=== PATIENT | female | born 1940 | race Caucasian/White ===

== ENCOUNTER 2021-07-20 13:30 | Emergency (ER) | payer OTHER, MEDICARE ==
[~2021-07-20] VITALS: Ht 172.7 cm; Wt 72.6 kg
[2021-07-20 13:47] VITALS: BP_SYST 139
--- NOTE | 2021-07-20 13:51 | NUR ---
SENT TO [facility]
--- NOTE | 2021-07-20 14:30 | NUR ---
ER examed patient in triage.
[2021-07-20] MEDS ORDERED: HYDR-3917 PO (14:49)
[2021-07-20] MEDS ORDERED: IBUP-1969 PO (14:49)
--- NOTE | 2021-07-20 15:10 | NUR ---
Assumed care of pt. here in waiting room with pain to left ankle post a fall last night, pt. rates pain 7/10 at rest, xrays have been completed. no break noted, POC reviewed with pt. and S.O. by Dr. Marin, pt. requested pain med Addendum: 07/20/21 at 1535 by LUCIEOBANETA pt. states foot hurts more than ankle
[2021-07-20] MEDS: KETOROLAC TROMETHAMINE 30 MG VIAL IM ONE (15:33)
[2021-07-20 15:36] VITALS: BP_SYST 136
--- NOTE | 2021-07-20 15:37 | NUR ---
Patient given written and verbal discharge instructions and verbalizes understanding. ER discussed with patient the results and treatment provided. Patient in stable condition. ID arm band removed. Rx of [place] and Ibuprofen given. Patient educated on pain management and to follow up with PMD. Pain Scale 7. Opportunity for questions provided and answered. Medication side effect fact sheet provided.
== END 2021-07-20 15:37 | disposition home or self-care (01) ==
LOC: SED 13:30
DX: S93.602A Unspecified sprain of left foot, initial encounter (principal); X50.1XXA Overexertion from prolonged static or awkward postures, initial encounter; Y93.89 Activity, other specified; Y92.89 Other specified places as the place of occurrence of the external cause; Y99.8 Other external cause status
CPT/HCPCS: 73630; 96372; 99283; J1885